=== PATIENT | male | born 1975 | race Caucasian/White ===

== ENCOUNTER 2023-11-28 12:37 | Emergency (ER) | payer OTHER, SELFPAY ==
--- NOTE | ~2023-11-28 | CT_ITS ---
EXAMINATION: CT head for stroke CLINICAL INFORMATION: Reason for Exam facial droop right COMPARISON: None available. TECHNIQUE: Contiguous axial imaging was performed from the skull base to vertex without intravenous contrast. Sagittal and coronal reformatted images were obtained. This CT examination was performed using dose optimization techniques as appropriate, variously including the following: * Automated exposure control * Adjustment of mA and/or kV according to patient size (this includes techniques or standardized protocols for targeted exams where dose is matched to indication/reason for exam; i.e. extremities or head) Use of iterative reconstruction technique DLP: 880 mGy-cm FINDINGS: Extensive multifocal encephalomalacia/gliosis throughout the right frontal, right parietal, right temporal, and right occipital lobes. There is associated ex vacuo dilatation of the right lateral ventricle. 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 No definite acute, territorial loss of spann-white differentiation. No acute intracranial hemorrhage. No midline shift or downward herniation. No depressed calvarial fracture. Scattered polypoid mucosal thickening in the paranasal sinuses.. The mastoid air cells are clear. CT/CT head for stroke IMPRESSION: No acute intracranial hemorrhage. Extensive encephalomalacia/gliosis throughout the right cerebral hemisphere with ex vacuo dilatation of the right lateral ventricle. No definite acute, territorial loss of spann-white differentiation. The above-mentioned important findings were discussed with Anisha BHANDARI at 13:30 on 11/28/2023.
--- NOTE | 2023-11-28 12:38 | ECG_ITS ---
Test Reason : WEAKNESS Blood Pressure : / mmHG Vent. Rate : 080 BPM Atrial Rate : 080 BPM P-R Int : 176 ms QRS Dur : 098 ms QT Int : 396 ms P-R-T Axes : 005 017 038 degrees QTc Int : 456 ms Normal sinus rhythm Normal ECG No previous ECGs available Referred By: Anisha Christianson Electronically Signed By:SAMMY CORDOBA
--- NOTE | 2023-11-28 12:41 | ED.GENADULT ---
HPI - General Adult General Chief complaint: Stroke Stated complaint: STROKE LIKE SX,SLURR SPEECH,R DROOP,-THINNER Time Seen by Provider: 11/28/23 13:35 Source: patient and EMS Mode of arrival: EMS Limitations: other (poor historian ) History of Present Illness HPI narrative: 48-year-old male presents from [facility] for complaints of difficult walking and issue with speech that started 45 minutes ago, patient reports this has since improved/resolved. Nursing from [facility] did call our emergency department spoke to or charge nurse and reports that the symptoms started yesterday, he had a right-sided facial droop, slurred speech and difficulties with ambulation which have since resolved they just wanted him to come get checked out. Patient states he is fine. Not cooperative upon arrival stating he needs to go to the bathroom and wants to saddle in and does not want to go straight to CT scan he says he is feeling fine now without complaints. On arrival is NIH stroke scale 0. Denies chest pain, shortness of breath, headache, vision changes, dizziness, weakness, nausea, vomiting, abdominal pain Related Data Allergies Allergy/AdvReac Type Severity Reaction Status Date / Time No Known Allergies Allergy Verified 11/28/23 13:18 Review of Systems Review of Systems: Constitutional : No Weight loss, No Fever, No Chills, No Fatigue, No Malaise ENT/Mouth : No sore throat, No Rhinorrhea Eyes: No Eye Pain, No Swelling, No Redness Cardiovascular : No Chest Pain, No SOB, No Dyspnea on Exertion, No Orthopnea, No Edema, No Palpitations Respiratory : No Cough, No Sputum, No Wheezing Gastrointestinal : No Nausea, No Vomiting, No Diarrhea, No Constipation, No abdominal Pain, No Hematochezia, No Melena Genitourinary : No Dysuria, No Urinary Frequency, No Hematuria, Musculoskeletal : No joint pain, No Myalgias, No Joint Swelling Skin : No Skin Lesions, No rash Neuro : No Weakness, No Numbness, No Dizziness, No Headache Psych : No Anxiety/Panic, No Depression All other systems reviewed and are negative Yes all other systems are reviewed and are negative Physical Exam ED Vital Signs: Vital Signs - 24 hr 11/28/23 13:19 Temperature 97.8 F Pulse Rate 88 Respiratory Rate 12 Blood Pressure 134/74 Pulse Oximetry 97 Oxygen Delivery Method Room Air BMI result Body Mass Index 37.2 Course Reevaluation(s) Reevaluation #1: CBC with slight leukocytosis, no left shift, I do not suspect this is due to infection. Chemistry unremarkable. POC normal. Troponin negative, EKG nonischemic, normal CPK. Coags normal. CT head no acute intracranial hemorrhage extensive encephalomalacia. No acute territorial loss or spann/white matter differentiation. Patient feeling well reports all symptoms improved. Will discharge patient back. Educated patient on diagnosis and treatment plan, answered all question, patient verbalizes understanding. At this time patient will be discharged home, advised to return with new or worsening symptoms. Educated on worrisome signs and symptoms and when to return. At this time I feel comfortable discharge home. Time: 13:59 Reevaluation #2: Discussed case w/ my attending who agrees w/ dx and tx plan. Medical Decision Making Medical Decision Making [facility] Narrative: 1241 48 year old male prestns w/ slurred speach and difficulty walking he states X 45 minutes, facility states since yesterday ( spoke to nursing) patient states hes fine now Pe benign NIHSS-0 Hx and PE likely TIA vs behavioral vs generalized weakness. Unlikley ich, stroke, posterior stroke. Will rule out metabolic derangments Plan- stroke protocol. To note LKWT unclear and patient poor/ureliable historian. Patient refusing to go the the scanner for head CT states he needs the bathroom first and he is fine. Differential Diagnosis Differential Diagnoses: The differential diagnosis associated with the presentation includes Hx and PE likely TIA vs behavioral vs generalized weakness.. Unlikley ich, stroke, posterior stroke. Will rule out metabolic derangments Admission/Observation Consideration of admission/observation: Escalation of care including admission/observation considered Lab Data [facility] Lab Attestation statement: I reviewed the patient's lab results. 11/28/23 13:01 11/28/23 13:01 Labs: Lab Results 11/28/23 11/28/23 11/28/23 Range/Units 13:01 13:02 13:03 WBC 11.8 H (4.8-10.8) X10*3/uL RBC 4.23 L (4.60-5.80) X10*6/uL Hgb 13.2 L (14.0-18.0) g/dl Hct 37.8 L (42.0-52.0) % MCV 89.4 (80.0-98.0) fL MCH 31.2 (27.0-33.0) pg MCHC 34.9 (31.0-36.0) g/dl RDW 13.0 (11.0-16.0) % Plt Count 314 (160-400) X10*3/uL MPV 9.0 L (9.4-12.4) fL Immature Gran % (Auto) 0.6 H (0.0-0.4) % Neut % (Auto) 72.4 (45-73) % Lymph % (Auto) 16.8 L (20-40) % [place] % (Auto) 8.8 (2-11) % Eos % (Auto) 1.1 (0-4) % Baso % (Auto) 0.3 (0-2) % Lymph # (Auto) 2.0 (1.2-4.9) X10*3/uL [place] # (Auto) 1.0 (0.1-1.2) X10*3/uL Eos # (Auto) 0.1 (0.0-0.4) X10*3/uL Baso # (Auto) 0.0 (0.0-0.2) X10*3/uL Abs Immat Gran (auto) 0.07 H (0.00-0.03) X10*3/uL Absolute Neuts (auto) 8.6 H (2.0-8.3) x10*3/uL Absolute Nucleated RBC 0.000 (0.0-0.012) X10*3/uL Nucleated RBC % (auto) 0.0 (0.0-0.2) /100WBC PT 12.5 (11.1-13.3) SEC Whole Blood PT 12.8 (11.1-13.5) sec INR 1.0 (0.9-1.1) Whole Blood INR 1.1 (0.9-1.1) APTT 29.6 (26.0-36.4) SEC Sodium 138 (135-145) mmol/L Potassium 4.1 (3.3-5.1) mmol/L Chloride 105 (96-108) mmol/L Carbon Dioxide 24 (22-29) mmol/L Anion Gap 13 (12-20) BUN 10 (9-16) mg/dL Creatinine 1.04 (0.5-1.4) mg/dL Estim Creat Clear Calc TNP Estimated GFR > 60 POC Glucose 95 (60-115) mg/dL Random Glucose 106 (60-115) mg/dL Calcium 9.4 (8.4-10.2) mg/dL Magnesium 2.0 (1.6-2.6) mg/dL Total Creatine Kinase 82 (38-174) U/L Troponin I High Sens < 2.7 (<3.5-35.0) ng/L Independent Interpretation I performed an independent interpretation of an: EKG (nonischemic ), Plain X-Ray and CT Scan (CT/CT head for stroke IMPRESSION: No acute intracranial hemorrhage. Extensive encephalomalacia/gliosis throughout the right cerebral hemisphere with ex vacuo dilatation of the right lateral ventricle. No definite acute, territorial loss of spann-white differentiation. The above-mentioned importan) Radiology Impression Discussion of test interpretation with radiology: I have reviewed the radiologist's reading. Tests considered The following testing was considered but not selected: nonfocal neuro no indication for CTA/MRI Critical Care Time Critical Care Time Critical Care Time: No Discharge Plan Discharge Clinical Impression: Weakness Patient Disposition: Home, Self-Care Additional Instructions: Take your medications as prescribed. If you were prescribed antibiotics today, it is important that you take your medication to their entirety, do not skip any doses, do not finish them early. Follow-up with your primary care provider this week. Return to the emergency department with new or worsening symptoms. Such as fevers, chills, chest pain, shortness of breath, nausea, vomiting, dizziness, headache, vision changes, lethargy In case of emergency call 911 Stand Alone Forms: Work/School Release
[2023-11-28 12:48] VITALS: BP 152/90; PULSE 95; O2SAT 97
[2023-11-28 13:06] LABS: MANUAL DIFF FLAG NO
[2023-11-28 13:07] LABS: Basophils Percent Auto 0.3 % (0-2); Eosinophils Absolute Auto 0.1 X10*3/uL (0.0-0.4); Eosinophils Percent Auto 1.1 % (0-4); Hematocrit 37.8 % (42.0-52.0); Hemoglobin 13.2 g/dl (14.0-18.0); Imm Gran Abs Auto 0.07 X10*3/uL (0.00-0.03); Imm Gran Pct Auto 0.6 % (0.0-0.4); Lymphocytes Percent Auto 16.8 % (20-40); Mean Corpuscular HGB Conc 34.9 g/dl (31.0-36.0); Mean Corpuscular Hemoglobin 31.2 pg (27.0-33.0); Mean Corpuscular Volume 89.4 fL (80.0-98.0); Monocytes Percent Auto 8.8 % (2-11); Neutrophils Absolute Auto 8.6 x10*3/uL (2.0-8.3); Neutrophils Percent Auto 72.4 % (45-73); Platelet Count 314 X10*3/uL (160-400); Red Blood Count 4.23 X10*6/uL (4.60-5.80); White Blood Count 11.8 X10*3/uL (4.8-10.8)
[2023-11-28 13:09] LABS: Prothrombin Time Whole Bld POC 12.8 sec (11.1-13.5); ~PT, ~INR - Anti Coag Clinic 1.1 (0.9-1.1)
[2023-11-28 13:11] LABS: Glucose, Whole Blood 95 mg/dL (60-115)
[2023-11-28 13:12] LABS: Prothrombin Time 12.5 SEC (11.1-13.3)
[2023-11-28 13:15] LABS: Partial Thromboplastin Time 29.6 SEC (26.0-36.4); Stroke Lab Use COMPLETE
[2023-11-28 13:19] VITALS: BP 134/74; PULSE 88; RESP 12; TEMP 36.6; O2SAT 97; BMI 37.2
[2023-11-28 13:23] LABS: Anion Gap 13 (12-20); Blood Urea Nitrogen 10 mg/dL (9-16); Calcium 9.4 mg/dL (8.4-10.2); Carbon Dioxide 24 mmol/L (22-29); Chloride 105 mmol/L (96-108); Estimated Glomerular Filt Rate > 60; Glucose Random 106 mg/dL (60-115); Potassium 4.1 mmol/L (3.3-5.1); Sodium 138 mmol/L (135-145)
[2023-11-28 13:40] LABS: Troponin-I High Sensitivity < 2.7 ng/L (<3.5-35.0)
[2023-11-28 16:50] LABS: Glucose, Whole Blood 85 mg/dL (60-115)
[2023-11-28 16:51] VITALS: BP 140/85; PULSE 86; RESP 16; TEMP 36.8; O2SAT 95
--- NOTE | 2023-11-28 21:59 | PC.NURSE ---
late note: pt arrived to ED reporting onset of stroke like symptoms at 1130 while at psych facility. slurred speech, difficulty word finding and R sided weakness/difficulty ambulating - sx confirmed by 1:1 sent from facility. pt reports sx resolved prior to arrival, neuro intact on triage assessment. 20G IV placed left AC, labs obtained, standing scale weight, pt to CT. pt reports chronic vague SI, denies a plan. changed over, belongings secured. 1:1 from facility remains at bedside.
== END 2023-11-28 22:05 | disposition home or self-care (01) ==
PROVIDERS: Physician Assistant; Emergency Provider Emergency Medicine
DX: R53.1 Weakness (principal)
CPT/HCPCS: 36415; 70450; 80048; 82550; 82947; 83735; 84484; 85025; 85610; 85730; 93005; 99285

== ENCOUNTER → 2023-11-28 12:38 | Outpatient (BNV) | payer OTHER, SELFPAY | PROVIDERS: Emergency Provider Emergency Medicine; Visit Provider Internal Medicine | DX: R53.1 Weakness (principal) | CPT/HCPCS: 93010 ==